=== PATIENT | female | born 1940 | race African-American/Black ===

== ENCOUNTER 2021-03-31 15:58 | Inpatient (IN) | payer OTHER ==
[2021-03-31] MEDS ORDERED: VANCOMYCIN 1 GM in D5W (PRE-DOCKED) 1,000 MG/250 ML IVPB ONE (17:30)
[2021-03-31] MEDS ORDERED: PIPERACILLIN/TAZOB 4.5 GM 4.5 GM in DEXTROSE 5%-WATER 100 ML IVPB ONE (17:35)
[2021-03-31] MEDS ORDERED: PIPERACILLIN/TAZOB 4.5 GM 4.5 GM/100 ML BAG IVPB ONE (17:48)
[2021-03-31] MEDS ORDERED: VANCOMYCIN 1 GRAM (PRE-DOCKED) 1,000 MG/250 ML BAG IVPB ONE ×2 (17:49→20:31)
[2021-03-31 18:10] LABS: BASO % 0.2 % (0-2.0); HEMOGLOBIN 9.7 GM/dL (10.7-15.3); LYMPH % 20.7 % (8-40); MCH 31.7 pg (25.7-33.7); MCHC 33.5 g/dl (32.0-36.0); MEAN CELL VOLUME 94.5 fl (80-96); MEAN PLT VOLUME 7.8 fl (7.5-11.1); MONO % 5.9 % (3.8-10.2); NEUT % 71.2 % (42.8-82.8); PLATELET COUNT 497 10^3/uL (134-434); RBC 3.07 M/mm3 (3.60-5.2); RDW 17.4 % (11.6-15.6); WHITE BLOOD COUNT 9.7 K/mm3 (4.0-10.0)
[2021-03-31 18:15] LABS: VENOUS BASE EXCESS 2.6 mmol/L (-2-2); VENOUS O2 SATURATION 73.5 % (70-80); VENOUS PCO2 42.8 mmHg (38-52); VENOUS PH 7.423 (7.310-7.410)
[2021-03-31 18:22] LABS: CHLORIDE 104 mmol/L (98-107); SODIUM 140 mmol/L (136-145)
[2021-03-31 18:26] LABS: ALBUMIN 2.5 g/dl (3.4-5.0); ANION GAP 9 MMOL/L (8-16); BLOOD UREA NITROGEN 32.3 mg/dL (7-18); CALCIUM 9.5 mg/dL (8.5-10.1); CO2 26 mmol/L (21-32)
[2021-03-31 18:27] LABS: GLUCOSE,RANDOM 118 mg/dL (74-106)
[2021-03-31 18:29] LABS: SGPT/ALT 17 U/L (13-61)
[2021-03-31 18:30] LABS: SGOT/AST 17 U/L (15-37)
[2021-03-31 18:32] LABS: ALK PHOS 149 U/L (45-117); BILIRUBIN,TOTAL 0.3 mg/dL (0.2-1); TOT PROT 7.3 g/dl (6.4-8.2)
[2021-04-01] MEDS: INSULIN SLIDING SCALE (NOVOLOG) 1 VIAL SQ SCH ×5 (00:49→21:14)
[2021-04-01] MEDS: GABAPENTIN 250 MG/5 ML ORAL SOLUTION, 470 ML BOTTLE GT SCH ×2 (07:06→17:16)
[2021-04-01] MEDS ORDERED: VANCOMYCIN HCL 1,500 MG in DEXTROSE 5%-WATER - 500 ML IVPB ONE (07:45)
[2021-04-01] MEDS: ALBUTEROL SO4 2.5/IPRATROPIUM 0.5 INH SOL 3 ML VIAL.NEB. NEB SCH ×4 (10:00→21:08)
[2021-04-01 10:50] LABS: HEMATOCRIT 29.6 % (32.4-45.2); HEMOGLOBIN 9.9 GM/dL (10.7-15.3); MCH 31.6 pg (25.7-33.7); MCHC 33.6 g/dl (32.0-36.0); MEAN CELL VOLUME 93.9 fl (80-96); MEAN PLT VOLUME 7.5 fl (7.5-11.1); PLATELET COUNT 510 10^3/uL (134-434); RBC 3.15 M/mm3 (3.60-5.2); WHITE BLOOD COUNT 8.6 K/mm3 (4.0-10.0)
[2021-04-01 10:55] LABS: INR 1.17 (0.83-1.09); PROTHROMBIN TIME (PATIENT) 14.4 SEC (9.7-13.0)
[2021-04-01 11:13] LABS: ALBUMIN 2.6 g/dl (3.4-5.0); BLOOD UREA NITROGEN 30.2 mg/dL (7-18)
[2021-04-01 11:14] LABS: CALCIUM 9.7 mg/dL (8.5-10.1); MAGNESIUM 2.3 mg/dL (1.8-2.4)
[2021-04-01] MEDS ORDERED: PT OWN MED DRAWER 7, Y5N ONE (11:14)
[2021-04-01] MEDS ORDERED: PIPERACILLIN/TAZOBACTAM 4.5 GM VIAL IVPB ONE ×3 (11:14→20:25)
[2021-04-01] MEDS ORDERED: DEXTROSE 5%-WATER 100 ML IVPB ONE ×3 (11:14→20:25)
[2021-04-01 11:17] LABS: CREATININE 1.1 mg/dL (0.55-1.3)
[2021-04-01 11:18] LABS: BILIRUBIN,TOTAL 0.4 mg/dL (0.2-1); TOT PROT 7.5 g/dl (6.4-8.2)
[2021-04-01] MEDS: PIPERACILLIN/TAZOB 4.5 GM 4.5 GM in DEXTROSE 5%-WATER 100 ML IVPB SCH ×4 (11:18→20:59)
[2021-04-01] MEDS: ASPIRIN 81 MG CHEWABLE TABLETS GT SCH (11:19)
[2021-04-01] MEDS: METOPROLOL TARTRATE 50 MG TABLET (FP) GT SCH ×2 (11:54→21:08)
[2021-04-01] MEDS: FUROSEMIDE 40 MG/5 ML UNIT-DOSE CUP GT SCH (12:50)
[2021-04-01] MEDS: FAMOTIDINE 40 MG/5 ML ORAL SUSPENSION PEG SCH (12:51)
[2021-04-01] MEDS ORDERED: PNEUMOC 13-VAL CONJ-DIP CRM/PF 0.5 ML DISP.SYRIN IM ONE (18:34)
[2021-04-01] MEDS: ATORVASTATIN CA 10 MG TABLET (FP) GT SCH (21:08)
[2021-04-01 22:40] VITALS: BMI 28.4
[2021-04-02] MEDS ORDERED: PIPERACILLIN/TAZOBACTAM 4.5 GM VIAL IVPB ONE ×5 (01:50→21:22)
[2021-04-02] MEDS ORDERED: DEXTROSE 5%-WATER 100 ML IVPB ONE ×4 (01:50→21:12)
[2021-04-02] MEDS ORDERED: VANCOMYCIN 1 GM in D5W (PRE-DOCKED) 1,000 MG/250 ML IVPB ONE (01:54)
[2021-04-02] MEDS: PIPERACILLIN/TAZOB 4.5 GM 4.5 GM in DEXTROSE 5%-WATER 100 ML IVPB SCH ×4 (02:10→22:25)
[2021-04-02] MEDS: GABAPENTIN 250 MG/5 ML ORAL SOLUTION, 470 ML BOTTLE GT SCH ×2 (05:28→17:41)
[2021-04-02] MEDS: INSULIN SLIDING SCALE (NOVOLOG) 1 VIAL SQ SCH ×4 (06:12→21:16)
[2021-04-02] MEDS ORDERED: VANCOMYCIN 1 GRAM (PRE-DOCKED) 1,000 MG/250 ML BAG IVPB SCH (09:00)
[2021-04-02] MEDS: ALBUTEROL SO4 2.5/IPRATROPIUM 0.5 INH SOL 3 ML VIAL.NEB. NEB SCH ×4 (09:57→21:05)
[2021-04-02 10:26] LABS: BASO % 0.3 % (0-2.0); HEMATOCRIT 28.1 % (32.4-45.2); HEMOGLOBIN 9.5 GM/dL (10.7-15.3); LYMPH % 24.2 % (8-40); MCH 31.1 pg (25.7-33.7); MCHC 33.8 g/dl (32.0-36.0); MEAN CELL VOLUME 91.9 fl (80-96); MEAN PLT VOLUME 6.9 fl (7.5-11.1); MONO % 6.9 % (3.8-10.2); NEUT % 66.6 % (42.8-82.8); PLATELET COUNT 480 10^3/uL (134-434); RBC 3.06 M/mm3 (3.60-5.2); RDW 17.5 % (11.6-15.6); WHITE BLOOD COUNT 9.4 K/mm3 (4.0-10.0)
[2021-04-02 10:44] LABS: BLOOD UREA NITROGEN 28.8 mg/dL (7-18); CALCIUM 9.7 mg/dL (8.5-10.1)
[2021-04-02 10:45] LABS: ALBUMIN 2.5 g/dl (3.4-5.0)
[2021-04-02 10:48] LABS: CREATININE 1.3 mg/dL (0.55-1.3)
[2021-04-02 10:50] LABS: BILIRUBIN,TOTAL 0.7 mg/dL (0.2-1); TOT PROT 7.3 g/dl (6.4-8.2)
[2021-04-02] MEDS: ASPIRIN 81 MG CHEWABLE TABLETS GT SCH (12:07)
[2021-04-02] MEDS: METOPROLOL TARTRATE 50 MG TABLET (FP) GT SCH ×2 (12:07→21:15)
[2021-04-02] MEDS: FUROSEMIDE 40 MG/5 ML UNIT-DOSE CUP GT SCH (12:07)
[2021-04-02] MEDS: FAMOTIDINE 40 MG/5 ML ORAL SUSPENSION PEG SCH (12:08)
[2021-04-02] MEDS ORDERED: PT OWN MED DRAWER 7, Y5N ONE (17:02)
[2021-04-02] MEDS: ATORVASTATIN CA 10 MG TABLET (FP) GT SCH (21:15)
[2021-04-02] MEDS ORDERED: VANCOMYCIN/WATER BAGS 1,250 MG/250 ML BAG IVPB SCH (22:00)
[2021-04-03] MEDS ORDERED: PIPERACILLIN/TAZOBACTAM 4.5 GM VIAL IVPB ONE ×4 (02:01→21:03)
[2021-04-03] MEDS ORDERED: DEXTROSE 5%-WATER 100 ML IVPB ONE ×4 (02:02→21:03)
[2021-04-03] MEDS: PIPERACILLIN/TAZOB 4.5 GM 4.5 GM in DEXTROSE 5%-WATER 100 ML IVPB SCH ×4 (03:01→21:05)
[2021-04-03] MEDS ORDERED: PT OWN MED DRAWER 7, Y5N ONE ×3 (04:13→09:00)
[2021-04-03] MEDS: INSULIN SLIDING SCALE (NOVOLOG) 1 VIAL SQ SCH ×4 (06:14→21:07)
[2021-04-03] MEDS: GABAPENTIN 250 MG/5 ML ORAL SOLUTION, 470 ML BOTTLE GT SCH ×2 (06:22→17:20)
[2021-04-03] MEDS: METOPROLOL TARTRATE 50 MG TABLET (FP) GT SCH ×2 (09:48→21:05)
[2021-04-03] MEDS: FUROSEMIDE 40 MG/5 ML UNIT-DOSE CUP GT SCH (09:49)
[2021-04-03] MEDS: FAMOTIDINE 40 MG/5 ML ORAL SUSPENSION PEG SCH (09:49)
[2021-04-03] MEDS: ASPIRIN 81 MG CHEWABLE TABLETS GT SCH (09:50)
[2021-04-03] MEDS: ALBUTEROL SO4 2.5/IPRATROPIUM 0.5 INH SOL 3 ML VIAL.NEB. NEB SCH ×4 (10:41→22:17)
[2021-04-03] MEDS ORDERED: INSULIN SLIDING SCALE (NOVOLOG) 1 VIAL SQ ONE (11:38)
[2021-04-03] MEDS: ATORVASTATIN CA 10 MG TABLET (FP) GT SCH (21:05)
[2021-04-03] MEDS: POLYETHYLENE GLYCOL (HEALTHYLAX) 3350 17 GM PACKET GT SCH (21:05)
[2021-04-04] MEDS ORDERED: DEXTROSE 5%-WATER 100 ML IVPB ONE ×4 (02:06→20:37)
[2021-04-04] MEDS ORDERED: PIPERACILLIN/TAZOBACTAM 4.5 GM VIAL IVPB ONE ×4 (02:06→20:37)
[2021-04-04] MEDS: PIPERACILLIN/TAZOB 4.5 GM 4.5 GM in DEXTROSE 5%-WATER 100 ML IVPB SCH ×4 (02:15→20:41)
[2021-04-04] MEDS: ACETAMINOPHEN 325 MG TABLET (FP) PO PRN (04:36)
[2021-04-04] MEDS: INSULIN SLIDING SCALE (NOVOLOG) 1 VIAL SQ SCH ×4 (06:17→21:05)
[2021-04-04] MEDS: GABAPENTIN 250 MG/5 ML ORAL SOLUTION, 470 ML BOTTLE GT SCH ×2 (06:38→18:13)
[2021-04-04] MEDS: ALBUTEROL SO4 2.5/IPRATROPIUM 0.5 INH SOL 3 ML VIAL.NEB. NEB SCH ×4 (07:50→20:10)
[2021-04-04] MEDS ORDERED: PT OWN MED DRAWER 7, Y5N ONE (09:43)
[2021-04-04] MEDS: METOPROLOL TARTRATE 50 MG TABLET (FP) GT SCH ×2 (09:45→21:04)
[2021-04-04] MEDS: ASPIRIN 81 MG CHEWABLE TABLETS GT SCH (09:45)
[2021-04-04] MEDS: POLYETHYLENE GLYCOL (HEALTHYLAX) 3350 17 GM PACKET GT SCH ×2 (09:45→21:03)
[2021-04-04] MEDS: FAMOTIDINE 40 MG/5 ML ORAL SUSPENSION PEG SCH (09:46)
[2021-04-04] MEDS: FUROSEMIDE 40 MG/5 ML UNIT-DOSE CUP GT SCH (09:46)
[2021-04-04 11:24] LABS: BASO % 0.2 % (0-2.0); EOS % 1.6 % (0-4.5); HEMATOCRIT 27.3 % (32.4-45.2); HEMOGLOBIN 9.2 GM/dL (10.7-15.3); LYMPH % 21.5 % (8-40); MCH 31.3 pg (25.7-33.7); MCHC 33.6 g/dl (32.0-36.0); MEAN CELL VOLUME 93.1 fl (80-96); MEAN PLT VOLUME 7.2 fl (7.5-11.1); MONO % 7.4 % (3.8-10.2); NEUT % 69.3 % (42.8-82.8); PLATELET COUNT 457 10^3/uL (134-434); RBC 2.94 M/mm3 (3.60-5.2); RDW 17.4 % (11.6-15.6); WHITE BLOOD COUNT 10.8 K/mm3 (4.0-10.0)
[2021-04-04 11:50] LABS: BLOOD UREA NITROGEN 35.7 mg/dL (7-18)
[2021-04-04 11:51] LABS: ALBUMIN 2.2 g/dl (3.4-5.0); CALCIUM 9.1 mg/dL (8.5-10.1)
[2021-04-04 11:54] LABS: CREATININE 1.5 mg/dL (0.55-1.3)
[2021-04-04 11:58] LABS: BILIRUBIN,TOTAL 0.5 mg/dL (0.2-1)
[2021-04-04] MEDS: ATORVASTATIN CA 10 MG TABLET (FP) GT SCH (21:04)
[2021-04-05] MEDS ORDERED: DEXTROSE 5%-WATER 100 ML IVPB ONE ×4 (01:57→21:22)
[2021-04-05] MEDS ORDERED: PIPERACILLIN/TAZOBACTAM 4.5 GM VIAL IVPB ONE ×4 (01:57→21:22)
[2021-04-05] MEDS: PIPERACILLIN/TAZOB 4.5 GM 4.5 GM in DEXTROSE 5%-WATER 100 ML IVPB SCH ×4 (02:01→21:28)
[2021-04-05] MEDS: ACETAMINOPHEN 325 MG TABLET (FP) PO PRN (05:05)
[2021-04-05] MEDS: GABAPENTIN 250 MG/5 ML ORAL SOLUTION, 470 ML BOTTLE GT SCH ×2 (05:23→17:29)
[2021-04-05] MEDS: INSULIN SLIDING SCALE (NOVOLOG) 1 VIAL SQ SCH ×4 (07:31→21:33)
[2021-04-05] MEDS: ALBUTEROL SO4 2.5/IPRATROPIUM 0.5 INH SOL 3 ML VIAL.NEB. NEB SCH ×4 (08:15→15:10)
[2021-04-05 08:59] LABS: BASO % 0.3 % (0-2.0); EOS % 2.7 % (0-4.5); HEMATOCRIT 27.1 % (32.4-45.2); HEMOGLOBIN 9.1 GM/dL (10.7-15.3); LYMPH % 21.2 % (8-40); MCH 31.3 pg (25.7-33.7); MCHC 33.7 g/dl (32.0-36.0); MEAN CELL VOLUME 92.9 fl (80-96); MEAN PLT VOLUME 7.3 fl (7.5-11.1); MONO % 6.7 % (3.8-10.2); NEUT % 69.1 % (42.8-82.8); PLATELET COUNT 472 10^3/uL (134-434); RBC 2.91 M/mm3 (3.60-5.2); RDW 17.6 % (11.6-15.6)
[2021-04-05 09:21] LABS: BLOOD UREA NITROGEN 41.2 mg/dL (7-18); MAGNESIUM 3.1 mg/dL (1.8-2.4)
[2021-04-05 09:24] LABS: CALCIUM 9.8 mg/dL (8.5-10.1); CREATININE 1.3 mg/dL (0.55-1.3)
[2021-04-05] MEDS: POLYETHYLENE GLYCOL (HEALTHYLAX) 3350 17 GM PACKET GT SCH ×2 (11:36→21:23)
[2021-04-05] MEDS ORDERED: PT OWN MED DRAWER 7, Y5N ONE (11:40)
[2021-04-05] MEDS: ASPIRIN 81 MG CHEWABLE TABLETS GT SCH (11:44)
[2021-04-05] MEDS: FUROSEMIDE 40 MG/5 ML UNIT-DOSE CUP GT SCH (11:44)
[2021-04-05] MEDS: FAMOTIDINE 40 MG/5 ML ORAL SUSPENSION PEG SCH (11:44)
[2021-04-05] MEDS: METOPROLOL TARTRATE 50 MG TABLET (FP) GT SCH ×2 (11:44→21:29)
[2021-04-05] MEDS: COLLAGENASE CLOSTRIDIUM HIST. 30 GRAMS TUBE TP SCH ×2 (14:00→21:28)
[2021-04-05] MEDS ORDERED: POTASSIUM CHLORIDE ORAL LIQUID 20 MEQ/15 ML PO ONE (17:00)
[2021-04-05] MEDS: ATORVASTATIN CA 10 MG TABLET (FP) GT SCH (21:29)
[2021-04-06] MEDS ORDERED: DEXTROSE 5%-WATER 100 ML IVPB ONE ×2 (03:02→09:40)
[2021-04-06] MEDS ORDERED: PIPERACILLIN/TAZOBACTAM 4.5 GM VIAL IVPB ONE ×2 (03:02→09:40)
[2021-04-06] MEDS: PIPERACILLIN/TAZOB 4.5 GM 4.5 GM in DEXTROSE 5%-WATER 100 ML IVPB SCH ×2 (03:12→09:53)
[2021-04-06] MEDS ORDERED: PT OWN MED DRAWER 7, Y5N ONE ×3 (06:06→09:40)
[2021-04-06] MEDS: GABAPENTIN 250 MG/5 ML ORAL SOLUTION, 470 ML BOTTLE GT SCH ×2 (06:13→18:21)
[2021-04-06] MEDS: INSULIN SLIDING SCALE (NOVOLOG) 1 VIAL SQ SCH ×4 (06:13→22:21)
[2021-04-06] MEDS: ALBUTEROL SO4 2.5/IPRATROPIUM 0.5 INH SOL 3 ML VIAL.NEB. NEB SCH ×4 (08:00→20:05)
[2021-04-06 09:14] LABS: BASO % 0.3 % (0-2.0); EOS % 2.4 % (0-4.5); HEMATOCRIT 27.7 % (32.4-45.2); HEMOGLOBIN 9.1 GM/dL (10.7-15.3); LYMPH % 19.4 % (8-40); MCH 31.1 pg (25.7-33.7); MCHC 32.9 g/dl (32.0-36.0); MEAN CELL VOLUME 94.5 fl (80-96); MEAN PLT VOLUME 7.3 fl (7.5-11.1); MONO % 6.2 % (3.8-10.2); NEUT % 71.7 % (42.8-82.8); PLATELET COUNT 523 10^3/uL (134-434); RBC 2.93 M/mm3 (3.60-5.2); RDW 17.3 % (11.6-15.6); WHITE BLOOD COUNT 9.4 K/mm3 (4.0-10.0)
[2021-04-06] MEDS: FUROSEMIDE 40 MG/5 ML UNIT-DOSE CUP GT SCH (09:54)
[2021-04-06] MEDS: ASPIRIN 81 MG CHEWABLE TABLETS GT SCH (09:55)
[2021-04-06] MEDS: MULTIVIT-MINERALS ORAL LIQUID PO SCH (09:55)
[2021-04-06] MEDS: METOPROLOL TARTRATE 50 MG TABLET (FP) GT SCH ×2 (09:55→22:21)
[2021-04-06] MEDS: FAMOTIDINE 40 MG/5 ML ORAL SUSPENSION PEG SCH (09:56)
[2021-04-06] MEDS ORDERED: MULTIVIT INJ. ADULT COMBO WITH VIT K 1 COMBO 10 ML VIAL IV SCH (10:00)
[2021-04-06] MEDS: POLYETHYLENE GLYCOL (HEALTHYLAX) 3350 17 GM PACKET GT SCH ×2 (10:24→22:20)
[2021-04-06] MEDS ORDERED: POTASSIUM CHLORIDE ORAL LIQUID 20 MEQ/15 ML PO ONE (10:25)
[2021-04-06] MEDS: COLLAGENASE CLOSTRIDIUM HIST. 30 GRAMS TUBE TP SCH ×2 (13:00→22:21)
[2021-04-06] MEDS: ATORVASTATIN CA 10 MG TABLET (FP) GT SCH (22:21)
[2021-04-07] MEDS ORDERED: PT OWN MED DRAWER 7, Y5N ONE ×2 (06:15→09:29)
[2021-04-07] MEDS: INSULIN SLIDING SCALE (NOVOLOG) 1 VIAL SQ SCH ×4 (06:28→22:06)
[2021-04-07] MEDS: GABAPENTIN 250 MG/5 ML ORAL SOLUTION, 470 ML BOTTLE GT SCH ×2 (06:28→17:22)
[2021-04-07] MEDS: ALBUTEROL SO4 2.5/IPRATROPIUM 0.5 INH SOL 3 ML VIAL.NEB. NEB SCH ×4 (07:50→20:29)
[2021-04-07 08:43] LABS: HEMATOCRIT 27.3 % (32.4-45.2); MCH 31.2 pg (25.7-33.7); MEAN CELL VOLUME 94.6 fl (80-96); MEAN PLT VOLUME 7.2 fl (7.5-11.1); PLATELET COUNT 475 10^3/uL (134-434); RBC 2.88 M/mm3 (3.60-5.2); RDW 17.7 % (11.6-15.6)
[2021-04-07 08:56] LABS: CALCIUM 9.6 mg/dL (8.5-10.1)
[2021-04-07 08:57] LABS: BLOOD UREA NITROGEN 47.4 mg/dL (7-18)
[2021-04-07 09:01] LABS: CREATININE 1.2 mg/dL (0.55-1.3)
[2021-04-07] MEDS: ASPIRIN 81 MG CHEWABLE TABLETS GT SCH (09:59)
[2021-04-07] MEDS: METOPROLOL TARTRATE 50 MG TABLET (FP) GT SCH ×2 (09:59→22:05)
[2021-04-07] MEDS: FAMOTIDINE 40 MG/5 ML ORAL SUSPENSION PEG SCH (10:00)
[2021-04-07] MEDS: FUROSEMIDE 40 MG/5 ML UNIT-DOSE CUP GT SCH (10:01)
[2021-04-07] MEDS: MULTIVIT-MINERALS ORAL LIQUID PO SCH (10:02)
[2021-04-07] MEDS: POLYETHYLENE GLYCOL (HEALTHYLAX) 3350 17 GM PACKET GT SCH ×2 (12:11→22:06)
[2021-04-07] MEDS: COLLAGENASE CLOSTRIDIUM HIST. 30 GRAMS TUBE TP SCH ×2 (12:11→22:05)
[2021-04-07] MEDS: ATORVASTATIN CA 10 MG TABLET (FP) GT SCH (22:05)
[2021-04-07] MEDS: HEPARIN NA (PORCINE) 5,000 UNITS/ML 1ML VIAL SQ SCH (22:05)
[2021-04-08] MEDS ORDERED: PT OWN MED DRAWER 7, Y5N ONE (06:25)
[2021-04-08] MEDS: INSULIN SLIDING SCALE (NOVOLOG) 1 VIAL SQ SCH ×5 (06:48→21:52)
[2021-04-08] MEDS: GABAPENTIN 250 MG/5 ML ORAL SOLUTION, 470 ML BOTTLE GT SCH ×2 (06:49→18:19)
[2021-04-08] MEDS: ALBUTEROL SO4 2.5/IPRATROPIUM 0.5 INH SOL 3 ML VIAL.NEB. NEB SCH ×4 (09:33→20:20)
[2021-04-08] MEDS: ASPIRIN 81 MG CHEWABLE TABLETS GT SCH (11:15)
[2021-04-08] MEDS: METOPROLOL TARTRATE 50 MG TABLET (FP) GT SCH ×2 (11:15→21:44)
[2021-04-08] MEDS: FUROSEMIDE 40 MG/5 ML UNIT-DOSE CUP GT SCH (11:16)
[2021-04-08] MEDS: HEPARIN NA (PORCINE) 5,000 UNITS/ML 1ML VIAL SQ SCH ×2 (11:16→21:44)
[2021-04-08] MEDS: POLYETHYLENE GLYCOL (HEALTHYLAX) 3350 17 GM PACKET GT SCH ×2 (11:16→21:44)
[2021-04-08] MEDS: MULTIVIT-MINERALS ORAL LIQUID PO SCH (11:16)
[2021-04-08] MEDS: COLLAGENASE CLOSTRIDIUM HIST. 30 GRAMS TUBE TP SCH (11:17)
[2021-04-08] MEDS: FAMOTIDINE 40 MG/5 ML ORAL SUSPENSION PEG SCH (11:17)
[2021-04-08 15:37] LABS: BASO % 0.3 % (0-2.0); EOS % 1.3 % (0-4.5); HEMATOCRIT 29.4 % (32.4-45.2); HEMOGLOBIN 9.6 GM/dL (10.7-15.3); LYMPH % 22.9 % (8-40); MCH 31.2 pg (25.7-33.7); MCHC 32.7 g/dl (32.0-36.0); MEAN CELL VOLUME 95.7 fl (80-96); MEAN PLT VOLUME 7.3 fl (7.5-11.1); MONO % 6.3 % (3.8-10.2); NEUT % 69.2 % (42.8-82.8); PLATELET COUNT 515 10^3/uL (134-434); RBC 3.07 M/mm3 (3.60-5.2); RDW 18.2 % (11.6-15.6); WHITE BLOOD COUNT 9.8 K/mm3 (4.0-10.0)
[2021-04-08 15:59] LABS: CALCIUM 9.9 mg/dL (8.5-10.1)
[2021-04-08 16:00] LABS: ALBUMIN 2.6 g/dl (3.4-5.0); BLOOD UREA NITROGEN 52.2 mg/dL (7-18); MAGNESIUM 2.5 mg/dL (1.8-2.4)
[2021-04-08 16:03] LABS: CREATININE 1.3 mg/dL (0.55-1.3)
[2021-04-08 16:04] LABS: BILIRUBIN,TOTAL 0.5 mg/dL (0.2-1)
[2021-04-08 16:05] LABS: TOT PROT 7.6 g/dl (6.4-8.2)
[2021-04-08] MEDS: ATORVASTATIN CA 10 MG TABLET (FP) GT SCH (21:44)
[2021-04-09] MEDS: GABAPENTIN 250 MG/5 ML ORAL SOLUTION, 470 ML BOTTLE GT SCH ×2 (05:39→18:32)
[2021-04-09] MEDS: COLLAGENASE CLOSTRIDIUM HIST. 30 GRAMS TUBE TP SCH ×2 (05:40→10:49)
[2021-04-09] MEDS: INSULIN SLIDING SCALE (NOVOLOG) 1 VIAL SQ SCH ×4 (06:05→21:51)
[2021-04-09] MEDS: ALBUTEROL SO4 2.5/IPRATROPIUM 0.5 INH SOL 3 ML VIAL.NEB. NEB SCH ×4 (07:40→20:32)
[2021-04-09] MEDS: HEPARIN NA (PORCINE) 5,000 UNITS/ML 1ML VIAL SQ SCH ×2 (10:47→21:54)
[2021-04-09] MEDS: ASPIRIN 81 MG CHEWABLE TABLETS GT SCH (10:47)
[2021-04-09] MEDS: METOPROLOL TARTRATE 50 MG TABLET (FP) GT SCH ×2 (10:47→21:54)
[2021-04-09] MEDS: MULTIVIT-MINERALS ORAL LIQUID PO SCH (10:48)
[2021-04-09] MEDS: POLYETHYLENE GLYCOL (HEALTHYLAX) 3350 17 GM PACKET GT SCH ×2 (10:48→21:30)
[2021-04-09] MEDS: FUROSEMIDE 40 MG/5 ML UNIT-DOSE CUP GT SCH (10:48)
[2021-04-09] MEDS: FAMOTIDINE 40 MG/5 ML ORAL SUSPENSION PEG SCH (10:49)
[2021-04-09 13:58] LABS: BASO % 0.3 % (0-2.0); EOS % 3.8 % (0-4.5); HEMATOCRIT 28.6 % (32.4-45.2); HEMOGLOBIN 9.2 GM/dL (10.7-15.3); LYMPH % 23.6 % (8-40); MCH 30.6 pg (25.7-33.7); MCHC 32.1 g/dl (32.0-36.0); MEAN CELL VOLUME 95.4 fl (80-96); MEAN PLT VOLUME 7.4 fl (7.5-11.1); MONO % 6.2 % (3.8-10.2); NEUT % 66.1 % (42.8-82.8); PLATELET COUNT 466 10^3/uL (134-434); RDW 18.1 % (11.6-15.6); WHITE BLOOD COUNT 9.7 K/mm3 (4.0-10.0)
[2021-04-09 14:16] LABS: ALBUMIN 2.3 g/dl (3.4-5.0); CALCIUM 9.6 mg/dL (8.5-10.1)
[2021-04-09 14:17] LABS: BLOOD UREA NITROGEN 54.7 mg/dL (7-18); MAGNESIUM 2.5 mg/dL (1.8-2.4)
[2021-04-09 14:20] LABS: CREATININE 1.1 mg/dL (0.55-1.3)
[2021-04-09 14:21] LABS: BILIRUBIN,TOTAL 0.2 mg/dL (0.2-1); TOT PROT 7.1 g/dl (6.4-8.2)
[2021-04-09] MEDS: ATORVASTATIN CA 10 MG TABLET (FP) GT SCH (21:54)
[2021-04-10] MEDS: COLLAGENASE CLOSTRIDIUM HIST. 30 GRAMS TUBE TP SCH ×3 (02:46→21:08)
[2021-04-10] MEDS: GABAPENTIN 250 MG/5 ML ORAL SOLUTION, 470 ML BOTTLE GT SCH ×2 (05:33→17:51)
[2021-04-10] MEDS: INSULIN SLIDING SCALE (NOVOLOG) 1 VIAL SQ SCH ×4 (06:02→21:06)
[2021-04-10] MEDS: ALBUTEROL SO4 2.5/IPRATROPIUM 0.5 INH SOL 3 ML VIAL.NEB. NEB SCH ×3 (08:40→20:22)
[2021-04-10] MEDS ORDERED: PT OWN MED DRAWER 7, Y5N ONE ×2 (08:58→18:02)
[2021-04-10] MEDS: FAMOTIDINE 40 MG/5 ML ORAL SUSPENSION PEG SCH (09:32)
[2021-04-10] MEDS: MULTIVIT-MINERALS ORAL LIQUID PO SCH (09:33)
[2021-04-10] MEDS: HEPARIN NA (PORCINE) 5,000 UNITS/ML 1ML VIAL SQ SCH ×2 (09:33→21:06)
[2021-04-10] MEDS: POLYETHYLENE GLYCOL (HEALTHYLAX) 3350 17 GM PACKET GT SCH ×3 (09:33→21:31)
[2021-04-10] MEDS: FUROSEMIDE 40 MG/5 ML UNIT-DOSE CUP GT SCH (09:33)
[2021-04-10] MEDS: ASPIRIN 81 MG CHEWABLE TABLETS GT SCH (09:35)
[2021-04-10] MEDS: METOPROLOL TARTRATE 50 MG TABLET (FP) GT SCH ×2 (09:36→21:06)
[2021-04-10 10:53] LABS: BASO % 0.5 % (0-2.0); EOS % 2.7 % (0-4.5); HEMATOCRIT 30.7 % (32.4-45.2); HEMOGLOBIN 9.9 GM/dL (10.7-15.3); LYMPH % 27.5 % (8-40); MCH 30.9 pg (25.7-33.7); MCHC 32.3 g/dl (32.0-36.0); MEAN CELL VOLUME 95.6 fl (80-96); MEAN PLT VOLUME 7.7 fl (7.5-11.1); MONO % 5.8 % (3.8-10.2); NEUT % 63.5 % (42.8-82.8); PLATELET COUNT 516 10^3/uL (134-434); RBC 3.21 M/mm3 (3.60-5.2); RDW 18.6 % (11.6-15.6); WHITE BLOOD COUNT 11.5 K/mm3 (4.0-10.0)
[2021-04-10 11:31] LABS: ALBUMIN 2.5 g/dl (3.4-5.0); BLOOD UREA NITROGEN 56.4 mg/dL (7-18); CALCIUM 9.9 mg/dL (8.5-10.1); MAGNESIUM 2.6 mg/dL (1.8-2.4)
[2021-04-10 11:34] LABS: CREATININE 1.2 mg/dL (0.55-1.3)
[2021-04-10 11:35] LABS: BILIRUBIN,TOTAL 0.4 mg/dL (0.2-1)
[2021-04-10 11:39] LABS: TOT PROT 7.6 g/dl (6.4-8.2)
[2021-04-10] MEDS ORDERED: DEXTROSE 5%-WATER - 1,000 ML IV SCH (11:45)
[2021-04-10] MEDS: ATORVASTATIN CA 10 MG TABLET (FP) GT SCH (21:05)
[2021-04-11] MEDS: GABAPENTIN 250 MG/5 ML ORAL SOLUTION, 470 ML BOTTLE GT SCH ×2 (05:16→17:50)
[2021-04-11] MEDS: INSULIN SLIDING SCALE (NOVOLOG) 1 VIAL SQ SCH ×4 (06:08→21:14)
[2021-04-11] MEDS: AMINO ACIDS/PROTEIN HYDROLYS 30 ML LIQUID.PKT GT SCH (07:59)
[2021-04-11] MEDS: ALBUTEROL SO4 2.5/IPRATROPIUM 0.5 INH SOL 3 ML VIAL.NEB. NEB SCH ×4 (08:35→20:33)
[2021-04-11] MEDS: ASPIRIN 81 MG CHEWABLE TABLETS GT SCH (09:30)
[2021-04-11] MEDS: METOPROLOL TARTRATE 50 MG TABLET (FP) GT SCH ×2 (09:30→21:14)
[2021-04-11] MEDS: FAMOTIDINE 40 MG/5 ML ORAL SUSPENSION PEG SCH (09:34)
[2021-04-11] MEDS: FUROSEMIDE 40 MG/5 ML UNIT-DOSE CUP GT SCH (09:36)
[2021-04-11] MEDS: MULTIVIT-MINERALS ORAL LIQUID PO SCH (09:37)
[2021-04-11] MEDS: HEPARIN NA (PORCINE) 5,000 UNITS/ML 1ML VIAL SQ SCH ×2 (09:39→21:14)
[2021-04-11] MEDS: POLYETHYLENE GLYCOL (HEALTHYLAX) 3350 17 GM PACKET GT SCH ×2 (09:40→21:14)
[2021-04-11] MEDS: COLLAGENASE CLOSTRIDIUM HIST. 30 GRAMS TUBE TP SCH ×2 (09:41→21:15)
[2021-04-11 09:59] LABS: BASO % 0.5 % (0-2.0); EOS % 1.5 % (0-4.5); HEMATOCRIT 29.8 % (32.4-45.2); HEMOGLOBIN 9.8 GM/dL (10.7-15.3); LYMPH % 17.2 % (8-40); MCH 31.5 pg (25.7-33.7); MEAN CELL VOLUME 95.4 fl (80-96); MEAN PLT VOLUME 7.7 fl (7.5-11.1); MONO % 4.6 % (3.8-10.2); NEUT % 76.2 % (42.8-82.8); PLATELET COUNT 445 10^3/uL (134-434); RBC 3.12 M/mm3 (3.60-5.2); RDW 18.3 % (11.6-15.6); WHITE BLOOD COUNT 10.1 K/mm3 (4.0-10.0)
[2021-04-11 10:25] LABS: BLOOD UREA NITROGEN 46.8 mg/dL (7-18)
[2021-04-11 10:28] LABS: CALCIUM 9.3 mg/dL (8.5-10.1); CREATININE 1.1 mg/dL (0.55-1.3); PHOSPHOROUS 3.1 mg/dL (2.5-4.9)
[2021-04-11] MEDS: ATORVASTATIN CA 10 MG TABLET (FP) GT SCH (21:14)
[2021-04-12] MEDS ORDERED: PT OWN MED DRAWER 7, Y5N ONE (05:30)
[2021-04-12] MEDS: GABAPENTIN 250 MG/5 ML ORAL SOLUTION, 470 ML BOTTLE GT SCH ×2 (05:37→18:39)
[2021-04-12] MEDS: INSULIN SLIDING SCALE (NOVOLOG) 1 VIAL SQ SCH ×3 (06:13→18:38)
[2021-04-12] MEDS: ALBUTEROL SO4 2.5/IPRATROPIUM 0.5 INH SOL 3 ML VIAL.NEB. NEB SCH ×4 (08:10→20:11)
[2021-04-12] MEDS: AMINO ACIDS/PROTEIN HYDROLYS 30 ML LIQUID.PKT GT SCH (10:54)
[2021-04-12] MEDS: METOPROLOL TARTRATE 50 MG TABLET (FP) GT SCH (10:55)
[2021-04-12] MEDS: HEPARIN NA (PORCINE) 5,000 UNITS/ML 1ML VIAL SQ SCH (10:55)
[2021-04-12] MEDS: ASPIRIN 81 MG CHEWABLE TABLETS GT SCH (10:55)
[2021-04-12] MEDS: FAMOTIDINE 40 MG/5 ML ORAL SUSPENSION PEG SCH (10:55)
[2021-04-12] MEDS: MULTIVIT-MINERALS ORAL LIQUID PO SCH (10:56)
[2021-04-12] MEDS: FUROSEMIDE 40 MG/5 ML UNIT-DOSE CUP GT SCH (10:56)
[2021-04-12] MEDS: POLYETHYLENE GLYCOL (HEALTHYLAX) 3350 17 GM PACKET GT SCH (10:56)
[2021-04-12] MEDS: COLLAGENASE CLOSTRIDIUM HIST. 30 GRAMS TUBE TP SCH (10:57)
[2021-04-13] MEDS: ATORVASTATIN CA 10 MG TABLET (FP) GT SCH ×2 (00:17→23:00)
[2021-04-13] MEDS: HEPARIN NA (PORCINE) 5,000 UNITS/ML 1ML VIAL SQ SCH ×3 (00:17→23:00)
[2021-04-13] MEDS: METOPROLOL TARTRATE 50 MG TABLET (FP) GT SCH ×3 (00:17→23:00)
[2021-04-13] MEDS: COLLAGENASE CLOSTRIDIUM HIST. 30 GRAMS TUBE TP SCH ×3 (00:18→23:04)
[2021-04-13] MEDS: POLYETHYLENE GLYCOL (HEALTHYLAX) 3350 17 GM PACKET GT SCH ×3 (00:18→23:00)
[2021-04-13] MEDS: INSULIN SLIDING SCALE (NOVOLOG) 1 VIAL SQ SCH ×5 (00:18→23:04)
[2021-04-13] MEDS ORDERED: PT OWN MED DRAWER 7, Y5N ONE ×3 (05:42→22:15)
[2021-04-13] MEDS: GABAPENTIN 250 MG/5 ML ORAL SOLUTION, 470 ML BOTTLE GT SCH ×2 (06:01→17:41)
[2021-04-13 08:04] LABS: BASO % 0.3 % (0-2.0); EOS % 1.5 % (0-4.5); HEMATOCRIT 27.5 % (32.4-45.2); HEMOGLOBIN 9.2 GM/dL (10.7-15.3); LYMPH % 16.8 % (8-40); MCH 31.5 pg (25.7-33.7); MCHC 33.4 g/dl (32.0-36.0); MEAN CELL VOLUME 94.4 fl (80-96); MEAN PLT VOLUME 8.2 fl (7.5-11.1); MONO % 5.8 % (3.8-10.2); NEUT % 75.6 % (42.8-82.8); PLATELET COUNT 397 10^3/uL (134-434); RBC 2.91 M/mm3 (3.60-5.2); RDW 18.2 % (11.6-15.6); WHITE BLOOD COUNT 9.4 K/mm3 (4.0-10.0)
[2021-04-13] MEDS: ALBUTEROL SO4 2.5/IPRATROPIUM 0.5 INH SOL 3 ML VIAL.NEB. NEB SCH ×5 (08:20→20:55)
[2021-04-13 08:50] LABS: BLOOD UREA NITROGEN 37.6 mg/dL (7-18)
[2021-04-13 08:53] LABS: CREATININE 1.1 mg/dL (0.55-1.3)
[2021-04-13 09:05] LABS: PHOSPHOROUS 3.7 mg/dL (2.5-4.9)
[2021-04-13] MEDS: AMINO ACIDS/PROTEIN HYDROLYS 30 ML LIQUID.PKT GT SCH (10:30)
[2021-04-13] MEDS: ASPIRIN 81 MG CHEWABLE TABLETS GT SCH (10:31)
[2021-04-13] MEDS: MULTIVIT-MINERALS ORAL LIQUID PO SCH (10:31)
[2021-04-13] MEDS: FAMOTIDINE 40 MG/5 ML ORAL SUSPENSION PEG SCH (10:32)
[2021-04-13] MEDS: FUROSEMIDE 40 MG/5 ML UNIT-DOSE CUP GT SCH (10:33)
[2021-04-13] MEDS: BANATROL PLUS POWDER PACKET GT SCH (23:00)
[2021-04-14] MEDS: GABAPENTIN 250 MG/5 ML ORAL SOLUTION, 470 ML BOTTLE GT SCH ×2 (05:17→18:38)
[2021-04-14] MEDS: BANATROL PLUS POWDER PACKET GT SCH ×3 (05:17→23:04)
[2021-04-14] MEDS: INSULIN SLIDING SCALE (NOVOLOG) 1 VIAL SQ SCH ×4 (06:43→23:06)
[2021-04-14] MEDS: ALBUTEROL SO4 2.5/IPRATROPIUM 0.5 INH SOL 3 ML VIAL.NEB. NEB SCH (07:30)
[2021-04-14 09:11] LABS: CALCIUM 9.1 mg/dL (8.5-10.1)
[2021-04-14 09:12] LABS: BLOOD UREA NITROGEN 37.1 mg/dL (7-18)
[2021-04-14] MEDS: METOPROLOL TARTRATE 50 MG TABLET (FP) GT SCH (10:45)
[2021-04-14] MEDS: ASPIRIN 81 MG CHEWABLE TABLETS GT SCH (10:45)
[2021-04-14] MEDS: AMINO ACIDS/PROTEIN HYDROLYS 30 ML LIQUID.PKT GT SCH (10:46)
[2021-04-14] MEDS: FUROSEMIDE 40 MG/5 ML UNIT-DOSE CUP GT SCH (10:46)
[2021-04-14] MEDS: HEPARIN NA (PORCINE) 5,000 UNITS/ML 1ML VIAL SQ SCH (10:46)
[2021-04-14] MEDS: MULTIVIT-MINERALS ORAL LIQUID PO SCH (10:46)
[2021-04-14] MEDS: POLYETHYLENE GLYCOL (HEALTHYLAX) 3350 17 GM PACKET GT SCH ×2 (10:47→23:03)
[2021-04-14] MEDS: FAMOTIDINE 40 MG/5 ML ORAL SUSPENSION PEG SCH (10:47)
[2021-04-14] MEDS: COLLAGENASE CLOSTRIDIUM HIST. 30 GRAMS TUBE TP SCH ×2 (10:48→23:06)
[2021-04-14] MEDS ORDERED: PT OWN MED DRAWER 7, Y5N ONE (23:01)
[2021-04-14] MEDS: ATORVASTATIN CA 10 MG TABLET (FP) GT SCH (23:04)
[2021-04-15] MEDS: METOPROLOL TARTRATE 50 MG TABLET (FP) GT SCH ×3 (00:35→22:17)
[2021-04-15] MEDS: GABAPENTIN 250 MG/5 ML ORAL SOLUTION, 470 ML BOTTLE GT SCH ×2 (05:23→19:25)
[2021-04-15] MEDS: BANATROL PLUS POWDER PACKET GT SCH ×3 (05:23→22:17)
[2021-04-15] MEDS: INSULIN SLIDING SCALE (NOVOLOG) 1 VIAL SQ SCH ×4 (06:02→22:18)
[2021-04-15] MEDS: AMINO ACIDS/PROTEIN HYDROLYS 30 ML LIQUID.PKT GT SCH (08:05)
[2021-04-15] MEDS: ASPIRIN 81 MG CHEWABLE TABLETS GT SCH (09:42)
[2021-04-15] MEDS: FUROSEMIDE 40 MG/5 ML UNIT-DOSE CUP GT SCH (09:43)
[2021-04-15] MEDS: FAMOTIDINE 40 MG/5 ML ORAL SUSPENSION PEG SCH (09:43)
[2021-04-15] MEDS: POLYETHYLENE GLYCOL (HEALTHYLAX) 3350 17 GM PACKET GT SCH ×2 (09:43→22:17)
[2021-04-15] MEDS: COLLAGENASE CLOSTRIDIUM HIST. 30 GRAMS TUBE TP SCH ×2 (09:43→22:18)
[2021-04-15] MEDS: ALBUTEROL SO4 2.5/IPRATROPIUM 0.5 INH SOL 3 ML VIAL.NEB. NEB SCH ×2 (15:57→20:05)
[2021-04-15] MEDS: MULTIVIT-MINERALS ORAL LIQUID PO SCH (19:20)
[2021-04-15] MEDS ORDERED: PT OWN MED DRAWER 7, Y5N ONE (21:09)
[2021-04-15] MEDS: ATORVASTATIN CA 10 MG TABLET (FP) GT SCH (22:17)
[2021-04-15] MEDS: HEPARIN NA (PORCINE) 5,000 UNITS/ML 1ML VIAL SQ SCH (22:17)
[2021-04-16] MEDS: GABAPENTIN 250 MG/5 ML ORAL SOLUTION, 470 ML BOTTLE GT SCH ×2 (05:21→17:17)
[2021-04-16] MEDS: BANATROL PLUS POWDER PACKET GT SCH ×3 (05:22→21:37)
[2021-04-16] MEDS: INSULIN SLIDING SCALE (NOVOLOG) 1 VIAL SQ SCH ×4 (06:21→21:37)
[2021-04-16] MEDS: ALBUTEROL SO4 2.5/IPRATROPIUM 0.5 INH SOL 3 ML VIAL.NEB. NEB SCH ×4 (07:34→20:13)
[2021-04-16] MEDS: AMINO ACIDS/PROTEIN HYDROLYS 30 ML LIQUID.PKT GT SCH (08:45)
[2021-04-16] MEDS: ASPIRIN 81 MG CHEWABLE TABLETS GT SCH (09:54)
[2021-04-16] MEDS: METOPROLOL TARTRATE 50 MG TABLET (FP) GT SCH ×2 (09:54→21:37)
[2021-04-16] MEDS: HEPARIN NA (PORCINE) 5,000 UNITS/ML 1ML VIAL SQ SCH ×2 (09:55→21:37)
[2021-04-16] MEDS: POLYETHYLENE GLYCOL (HEALTHYLAX) 3350 17 GM PACKET GT SCH ×2 (09:56→21:37)
[2021-04-16] MEDS: FUROSEMIDE 40 MG/5 ML UNIT-DOSE CUP GT SCH (09:56)
[2021-04-16] MEDS: FAMOTIDINE 40 MG/5 ML ORAL SUSPENSION PEG SCH (09:56)
[2021-04-16] MEDS: MULTIVIT-MINERALS ORAL LIQUID PO SCH (09:56)
[2021-04-16 10:16] LABS: MCH 31.3 pg (25.7-33.7); MCHC 33.4 g/dl (32.0-36.0); MEAN CELL VOLUME 93.6 fl (80-96); MEAN PLT VOLUME 7.6 fl (7.5-11.1); PLATELET COUNT 404 10^3/uL (134-434); RBC 2.88 M/mm3 (3.60-5.2); RDW 18.4 % (11.6-15.6); WHITE BLOOD COUNT 7.8 K/mm3 (4.0-10.0)
[2021-04-16] MEDS ORDERED: INSULIN SLIDING SCALE (NOVOLOG) 1 VIAL SQ ONE (10:53)
[2021-04-16 10:56] LABS: BLOOD UREA NITROGEN 42.7 mg/dL (7-18); CALCIUM 9.4 mg/dL (8.5-10.1)
[2021-04-16 10:57] LABS: ALBUMIN 2.3 g/dl (3.4-5.0)
[2021-04-16 11:00] LABS: TOT PROT 6.8 g/dl (6.4-8.2)
[2021-04-16 11:03] LABS: BILIRUBIN,TOTAL 0.3 mg/dL (0.2-1)
[2021-04-16] MEDS: COLLAGENASE CLOSTRIDIUM HIST. 30 GRAMS TUBE TP SCH ×2 (11:23→21:37)
[2021-04-16 12:04] LABS: ANISOCYTOSIS 0; HELMET CELLS 0; HOWELL-JOLLY BODIES 0; MACROCYTOSIS 0; OVALOCYTE 0; PLATELET ESTIMATE NORMAL; ROULEAU 0; SICKELED CELLS 0; TARGET CELLS 0; TEAR DROP CELLS 0; TOXIC GRANULATION 0
[2021-04-16] MEDS ORDERED: PT OWN MED DRAWER 7, Y5N ONE (20:56)
[2021-04-16] MEDS: ATORVASTATIN CA 10 MG TABLET (FP) GT SCH (21:37)
[2021-04-17] MEDS: GABAPENTIN 250 MG/5 ML ORAL SOLUTION, 470 ML BOTTLE GT SCH ×2 (05:20→18:08)
[2021-04-17] MEDS: BANATROL PLUS POWDER PACKET GT SCH ×3 (05:20→22:08)
[2021-04-17] MEDS: INSULIN SLIDING SCALE (NOVOLOG) 1 VIAL SQ SCH ×4 (06:05→22:19)
[2021-04-17] MEDS: ALBUTEROL SO4 2.5/IPRATROPIUM 0.5 INH SOL 3 ML VIAL.NEB. NEB SCH ×4 (07:55→20:43)
[2021-04-17] MEDS: AMINO ACIDS/PROTEIN HYDROLYS 30 ML LIQUID.PKT GT SCH (09:13)
[2021-04-17] MEDS: HEPARIN NA (PORCINE) 5,000 UNITS/ML 1ML VIAL SQ SCH ×2 (09:18→22:08)
[2021-04-17] MEDS: ASPIRIN 81 MG CHEWABLE TABLETS GT SCH (09:18)
[2021-04-17] MEDS: METOPROLOL TARTRATE 50 MG TABLET (FP) GT SCH ×2 (09:18→23:14)
[2021-04-17] MEDS: MULTIVIT-MINERALS ORAL LIQUID PO SCH (09:19)
[2021-04-17] MEDS: FAMOTIDINE 40 MG/5 ML ORAL SUSPENSION PEG SCH (09:19)
[2021-04-17] MEDS: FUROSEMIDE 40 MG/5 ML UNIT-DOSE CUP GT SCH (09:19)
[2021-04-17] MEDS: POLYETHYLENE GLYCOL (HEALTHYLAX) 3350 17 GM PACKET GT SCH ×2 (09:20→22:06)
[2021-04-17] MEDS: COLLAGENASE CLOSTRIDIUM HIST. 30 GRAMS TUBE TP SCH ×2 (09:20→22:08)
[2021-04-17] MEDS ORDERED: PT OWN MED DRAWER 7, Y5N ONE (21:50)
[2021-04-17] MEDS: ATORVASTATIN CA 10 MG TABLET (FP) GT SCH (22:08)
[2021-04-18] MEDS: GABAPENTIN 250 MG/5 ML ORAL SOLUTION, 470 ML BOTTLE GT SCH ×2 (06:00→17:21)
[2021-04-18] MEDS: BANATROL PLUS POWDER PACKET GT SCH ×3 (06:00→21:58)
[2021-04-18] MEDS: INSULIN SLIDING SCALE (NOVOLOG) 1 VIAL SQ SCH ×4 (06:14→21:58)
[2021-04-18] MEDS: ALBUTEROL SO4 2.5/IPRATROPIUM 0.5 INH SOL 3 ML VIAL.NEB. NEB SCH ×4 (08:20→19:35)
[2021-04-18] MEDS ORDERED: PT OWN MED DRAWER 7, Y5N ONE ×2 (08:45→21:49)
[2021-04-18] MEDS: AMINO ACIDS/PROTEIN HYDROLYS 30 ML LIQUID.PKT GT SCH (09:00)
[2021-04-18] MEDS: MULTIVIT-MINERALS ORAL LIQUID PO SCH (09:01)
[2021-04-18] MEDS: FUROSEMIDE 40 MG/5 ML UNIT-DOSE CUP GT SCH (09:02)
[2021-04-18] MEDS: FAMOTIDINE 40 MG/5 ML ORAL SUSPENSION PEG SCH (09:03)
[2021-04-18] MEDS: ASPIRIN 81 MG CHEWABLE TABLETS GT SCH (09:03)
[2021-04-18] MEDS: HEPARIN NA (PORCINE) 5,000 UNITS/ML 1ML VIAL SQ SCH ×2 (09:03→21:58)
[2021-04-18] MEDS: METOPROLOL TARTRATE 50 MG TABLET (FP) GT SCH ×2 (09:04→21:58)
[2021-04-18] MEDS: COLLAGENASE CLOSTRIDIUM HIST. 30 GRAMS TUBE TP SCH ×2 (09:41→21:59)
[2021-04-18] MEDS: POLYETHYLENE GLYCOL (HEALTHYLAX) 3350 17 GM PACKET GT SCH ×2 (09:42→21:58)
[2021-04-18] MEDS ORDERED: INSULIN SLIDING SCALE (NOVOLOG) 1 VIAL SQ ONE (11:01)
[2021-04-18] MEDS: ATORVASTATIN CA 10 MG TABLET (FP) GT SCH (21:58)
[2021-04-19] MEDS ORDERED: PT OWN MED DRAWER 7, Y5N ONE ×3 (06:21→18:05)
[2021-04-19] MEDS: BANATROL PLUS POWDER PACKET GT SCH ×3 (06:30→22:25)
[2021-04-19] MEDS: GABAPENTIN 250 MG/5 ML ORAL SOLUTION, 470 ML BOTTLE GT SCH ×2 (06:30→17:56)
[2021-04-19] MEDS: INSULIN SLIDING SCALE (NOVOLOG) 1 VIAL SQ SCH ×4 (06:31→22:25)
[2021-04-19] MEDS: AMINO ACIDS/PROTEIN HYDROLYS 30 ML LIQUID.PKT GT SCH (07:43)
[2021-04-19] MEDS: ALBUTEROL SO4 2.5/IPRATROPIUM 0.5 INH SOL 3 ML VIAL.NEB. NEB SCH ×4 (07:47→20:03)
[2021-04-19 08:35] LABS: BASO % 0.4 % (0-2.0); EOS % 2.7 % (0-4.5); HEMATOCRIT 29.9 % (32.4-45.2); HEMOGLOBIN 9.8 GM/dL (10.7-15.3); LYMPH % 31.7 % (8-40); MCH 31.1 pg (25.7-33.7); MCHC 32.6 g/dl (32.0-36.0); MEAN CELL VOLUME 95.3 fl (80-96); MEAN PLT VOLUME 7.6 fl (7.5-11.1); MONO % 9.1 % (3.8-10.2); NEUT % 56.1 % (42.8-82.8); PLATELET COUNT 386 10^3/uL (134-434); RBC 3.14 M/mm3 (3.60-5.2); RDW 18.7 % (11.6-15.6); WHITE BLOOD COUNT 7.9 K/mm3 (4.0-10.0)
[2021-04-19 09:02] LABS: CALCIUM 9.4 mg/dL (8.5-10.1)
[2021-04-19 09:03] LABS: BLOOD UREA NITROGEN 45.5 mg/dL (7-18)
[2021-04-19] MEDS: ASPIRIN 81 MG CHEWABLE TABLETS GT SCH (09:10)
[2021-04-19] MEDS: FAMOTIDINE 40 MG/5 ML ORAL SUSPENSION PEG SCH (09:10)
[2021-04-19] MEDS: METOPROLOL TARTRATE 50 MG TABLET (FP) GT SCH ×2 (09:10→22:25)
[2021-04-19] MEDS: HEPARIN NA (PORCINE) 5,000 UNITS/ML 1ML VIAL SQ SCH ×2 (09:11→22:25)
[2021-04-19] MEDS: POLYETHYLENE GLYCOL (HEALTHYLAX) 3350 17 GM PACKET GT SCH ×2 (09:12→22:26)
[2021-04-19] MEDS: MULTIVIT-MINERALS ORAL LIQUID PO SCH (09:12)
[2021-04-19] MEDS: FUROSEMIDE 40 MG/5 ML UNIT-DOSE CUP GT SCH (09:12)
[2021-04-19] MEDS: COLLAGENASE CLOSTRIDIUM HIST. 30 GRAMS TUBE TP SCH ×2 (09:13→22:26)
[2021-04-19] MEDS: ATORVASTATIN CA 10 MG TABLET (FP) GT SCH (22:25)
[2021-04-20] MEDS ORDERED: PT OWN MED DRAWER 7, Y5N ONE ×4 (05:42→22:11)
[2021-04-20] MEDS: GABAPENTIN 250 MG/5 ML ORAL SOLUTION, 470 ML BOTTLE GT SCH ×2 (06:09→17:19)
[2021-04-20] MEDS: BANATROL PLUS POWDER PACKET GT SCH ×3 (06:09→22:21)
[2021-04-20] MEDS: INSULIN SLIDING SCALE (NOVOLOG) 1 VIAL SQ SCH ×4 (06:09→22:22)
[2021-04-20] MEDS: AMINO ACIDS/PROTEIN HYDROLYS 30 ML LIQUID.PKT GT SCH (07:30)
[2021-04-20] MEDS: ALBUTEROL SO4 2.5/IPRATROPIUM 0.5 INH SOL 3 ML VIAL.NEB. NEB SCH ×2 (07:53→11:02)
[2021-04-20 09:54] LABS: BASO % 0.2 % (0-2.0); EOS % 2.3 % (0-4.5); HEMATOCRIT 29.8 % (32.4-45.2); HEMOGLOBIN 9.9 GM/dL (10.7-15.3); LYMPH % 32.5 % (8-40); MCH 31.3 pg (25.7-33.7); MCHC 33.1 g/dl (32.0-36.0); MEAN CELL VOLUME 94.6 fl (80-96); MEAN PLT VOLUME 7.7 fl (7.5-11.1); MONO % 7.3 % (3.8-10.2); NEUT % 57.7 % (42.8-82.8); PLATELET COUNT 411 10^3/uL (134-434); RBC 3.15 M/mm3 (3.60-5.2); WHITE BLOOD COUNT 6.7 K/mm3 (4.0-10.0)
[2021-04-20 10:09] LABS: CALCIUM 9.5 mg/dL (8.5-10.1)
[2021-04-20 10:10] LABS: BLOOD UREA NITROGEN 45.7 mg/dL (7-18)
[2021-04-20] MEDS: ASPIRIN 81 MG CHEWABLE TABLETS GT SCH (10:10)
[2021-04-20] MEDS: METOPROLOL TARTRATE 50 MG TABLET (FP) GT SCH ×2 (10:10→22:21)
[2021-04-20] MEDS: HEPARIN NA (PORCINE) 5,000 UNITS/ML 1ML VIAL SQ SCH ×2 (10:10→22:21)
[2021-04-20] MEDS: FUROSEMIDE 40 MG/5 ML UNIT-DOSE CUP GT SCH (10:11)
[2021-04-20] MEDS: COLLAGENASE CLOSTRIDIUM HIST. 30 GRAMS TUBE TP SCH ×2 (10:12→22:22)
[2021-04-20] MEDS: FAMOTIDINE 40 MG/5 ML ORAL SUSPENSION PEG SCH (10:12)
[2021-04-20] MEDS: MULTIVIT-MINERALS ORAL LIQUID PO SCH (10:12)
[2021-04-20 10:13] LABS: CREATININE 0.9 mg/dL (0.55-1.3)
[2021-04-20] MEDS: POLYETHYLENE GLYCOL (HEALTHYLAX) 3350 17 GM PACKET GT SCH ×2 (11:03→22:21)
[2021-04-20] MEDS: ATORVASTATIN CA 10 MG TABLET (FP) GT SCH (22:21)
[2021-04-21] MEDS: GABAPENTIN 250 MG/5 ML ORAL SOLUTION, 470 ML BOTTLE GT SCH ×2 (05:35→18:39)
[2021-04-21] MEDS: BANATROL PLUS POWDER PACKET GT SCH ×3 (05:36→21:55)
[2021-04-21] MEDS: INSULIN SLIDING SCALE (NOVOLOG) 1 VIAL SQ SCH ×4 (06:49→22:48)
[2021-04-21] MEDS: AMINO ACIDS/PROTEIN HYDROLYS 30 ML LIQUID.PKT GT SCH (11:03)
[2021-04-21] MEDS: METOPROLOL TARTRATE 50 MG TABLET (FP) GT SCH ×2 (11:03→21:55)
[2021-04-21] MEDS: ASPIRIN 81 MG CHEWABLE TABLETS GT SCH (11:03)
[2021-04-21] MEDS: HEPARIN NA (PORCINE) 5,000 UNITS/ML 1ML VIAL SQ SCH ×2 (11:04→21:55)
[2021-04-21] MEDS: FAMOTIDINE 40 MG/5 ML ORAL SUSPENSION PEG SCH (11:04)
[2021-04-21] MEDS: FUROSEMIDE 40 MG/5 ML UNIT-DOSE CUP GT SCH (11:05)
[2021-04-21] MEDS: MULTIVIT-MINERALS ORAL LIQUID PO SCH (11:05)
[2021-04-21] MEDS: POLYETHYLENE GLYCOL (HEALTHYLAX) 3350 17 GM PACKET GT SCH ×2 (11:05→21:56)
[2021-04-21] MEDS: COLLAGENASE CLOSTRIDIUM HIST. 30 GRAMS TUBE TP SCH (11:06)
[2021-04-21] MEDS ORDERED: PT OWN MED DRAWER 7, Y5N ONE (13:30)
[2021-04-21] MEDS: ATORVASTATIN CA 10 MG TABLET (FP) GT SCH (21:56)
[2021-04-22] MEDS: BANATROL PLUS POWDER PACKET GT SCH ×3 (05:06→21:48)
[2021-04-22] MEDS: GABAPENTIN 250 MG/5 ML ORAL SOLUTION, 470 ML BOTTLE GT SCH ×2 (05:18→17:54)
[2021-04-22] MEDS: COLLAGENASE CLOSTRIDIUM HIST. 30 GRAMS TUBE TP SCH ×3 (05:19→21:56)
[2021-04-22] MEDS: INSULIN SLIDING SCALE (NOVOLOG) 1 VIAL SQ SCH ×4 (06:04→21:49)
[2021-04-22] MEDS ORDERED: PT OWN MED DRAWER 7, Y5N ONE ×4 (06:18→20:15)
[2021-04-22] MEDS: FAMOTIDINE 40 MG/5 ML ORAL SUSPENSION PEG SCH (11:21)
[2021-04-22] MEDS: FUROSEMIDE 40 MG/5 ML UNIT-DOSE CUP GT SCH (11:21)
[2021-04-22] MEDS: AMINO ACIDS/PROTEIN HYDROLYS 30 ML LIQUID.PKT GT SCH (11:22)
[2021-04-22] MEDS: MULTIVIT-MINERALS ORAL LIQUID PO SCH (11:22)
[2021-04-22] MEDS: ASPIRIN 81 MG CHEWABLE TABLETS GT SCH (11:23)
[2021-04-22] MEDS: METOPROLOL TARTRATE 50 MG TABLET (FP) GT SCH ×2 (11:23→21:49)
[2021-04-22] MEDS: POLYETHYLENE GLYCOL (HEALTHYLAX) 3350 17 GM PACKET GT SCH ×2 (11:23→21:48)
[2021-04-22] MEDS: HEPARIN NA (PORCINE) 5,000 UNITS/ML 1ML VIAL SQ SCH ×2 (11:23→21:48)
[2021-04-22 12:32] LABS: BASO % 0.2 % (0-2.0); EOS % 1.7 % (0-4.5); HEMOGLOBIN 9.9 GM/dL (10.7-15.3); LYMPH % 29.1 % (8-40); MCH 31.3 pg (25.7-33.7); MCHC 32.9 g/dl (32.0-36.0); MEAN CELL VOLUME 95.3 fl (80-96); MEAN PLT VOLUME 7.5 fl (7.5-11.1); MONO % 8.9 % (3.8-10.2); NEUT % 60.1 % (42.8-82.8); PLATELET COUNT 435 10^3/uL (134-434); RBC 3.15 M/mm3 (3.60-5.2); RDW 18.8 % (11.6-15.6); WHITE BLOOD COUNT 9.6 K/mm3 (4.0-10.0)
[2021-04-22 12:54] LABS: ALBUMIN 2.5 g/dl (3.4-5.0); CALCIUM 9.2 mg/dL (8.5-10.1)
[2021-04-22 12:55] LABS: BLOOD UREA NITROGEN 45.6 mg/dL (7-18)
[2021-04-22 12:59] LABS: BILIRUBIN,TOTAL 0.4 mg/dL (0.2-1); TOT PROT 7.2 g/dl (6.4-8.2)
[2021-04-22] MEDS: ATORVASTATIN CA 10 MG TABLET (FP) GT SCH (21:49)
[2021-04-23] MEDS: BANATROL PLUS POWDER PACKET GT SCH ×3 (05:49→21:11)
[2021-04-23] MEDS: GABAPENTIN 250 MG/5 ML ORAL SOLUTION, 470 ML BOTTLE GT SCH ×2 (05:49→17:31)
[2021-04-23] MEDS: INSULIN SLIDING SCALE (NOVOLOG) 1 VIAL SQ SCH ×4 (06:08→21:13)
[2021-04-23 09:22] LABS: BASO % 0.5 % (0-2.0); EOS % 1.8 % (0-4.5); HEMATOCRIT 26.1 % (32.4-45.2); HEMOGLOBIN 8.7 GM/dL (10.7-15.3); LYMPH % 24.9 % (8-40); MCH 31.4 pg (25.7-33.7); MCHC 33.2 g/dl (32.0-36.0); MEAN CELL VOLUME 94.7 fl (80-96); MEAN PLT VOLUME 7.3 fl (7.5-11.1); MONO % 8.4 % (3.8-10.2); NEUT % 64.4 % (42.8-82.8); PLATELET COUNT 369 10^3/uL (134-434); RBC 2.76 M/mm3 (3.60-5.2); RDW 19.3 % (11.6-15.6); WHITE BLOOD COUNT 8.3 K/mm3 (4.0-10.0)
[2021-04-23 10:07] LABS: ALBUMIN 2.2 g/dl (3.4-5.0); BLOOD UREA NITROGEN 48.8 mg/dL (7-18)
[2021-04-23 10:11] LABS: BILIRUBIN,TOTAL 0.5 mg/dL (0.2-1); TOT PROT 6.4 g/dl (6.4-8.2)
[2021-04-23] MEDS ORDERED: PT OWN MED DRAWER 7, Y5N ONE ×2 (10:40→14:00)
[2021-04-23] MEDS: POLYETHYLENE GLYCOL (HEALTHYLAX) 3350 17 GM PACKET GT SCH ×2 (10:48→21:11)
[2021-04-23] MEDS: MULTIVIT-MINERALS ORAL LIQUID PO SCH (10:50)
[2021-04-23] MEDS: FAMOTIDINE 40 MG/5 ML ORAL SUSPENSION PEG SCH (10:50)
[2021-04-23] MEDS: FUROSEMIDE 40 MG/5 ML UNIT-DOSE CUP GT SCH (10:50)
[2021-04-23] MEDS: METOPROLOL TARTRATE 50 MG TABLET (FP) GT SCH ×2 (10:50→21:10)
[2021-04-23] MEDS: AMINO ACIDS/PROTEIN HYDROLYS 30 ML LIQUID.PKT GT SCH (10:51)
[2021-04-23] MEDS: ASPIRIN 81 MG CHEWABLE TABLETS GT SCH (10:51)
[2021-04-23] MEDS: COLLAGENASE CLOSTRIDIUM HIST. 30 GRAMS TUBE TP SCH ×2 (10:52→21:13)
[2021-04-23] MEDS: HEPARIN NA (PORCINE) 5,000 UNITS/ML 1ML VIAL SQ SCH ×2 (10:52→21:12)
[2021-04-23] MEDS: ATORVASTATIN CA 10 MG TABLET (FP) GT SCH (21:10)
[2021-04-24] MEDS: BANATROL PLUS POWDER PACKET GT SCH (05:52)
[2021-04-24] MEDS: GABAPENTIN 250 MG/5 ML ORAL SOLUTION, 470 ML BOTTLE GT SCH (05:52)
[2021-04-24] MEDS: INSULIN SLIDING SCALE (NOVOLOG) 1 VIAL SQ SCH ×2 (07:06→12:24)
[2021-04-24 09:03] LABS: HEMATOCRIT 28.6 % (32.4-45.2); HEMOGLOBIN 9.5 GM/dL (10.7-15.3); MCH 31.8 pg (25.7-33.7); MCHC 33.2 g/dl (32.0-36.0); MEAN CELL VOLUME 95.9 fl (80-96); MEAN PLT VOLUME 7.5 fl (7.5-11.1); PLATELET COUNT 361 10^3/uL (134-434); RBC 2.98 M/mm3 (3.60-5.2); RDW 19.3 % (11.6-15.6); WHITE BLOOD COUNT 9.1 K/mm3 (4.0-10.0)
[2021-04-24 10:09] VITALS: BP 132/65; PULSE 84; TEMP 99.3
[2021-04-24] MEDS ORDERED: PT OWN MED DRAWER 7, Y5N ONE (10:23)
[2021-04-24] MEDS: ASPIRIN 81 MG CHEWABLE TABLETS GT SCH (10:31)
[2021-04-24] MEDS: METOPROLOL TARTRATE 50 MG TABLET (FP) GT SCH (10:31)
[2021-04-24] MEDS: FUROSEMIDE 40 MG/5 ML UNIT-DOSE CUP GT SCH (10:31)
[2021-04-24] MEDS: AMINO ACIDS/PROTEIN HYDROLYS 30 ML LIQUID.PKT GT SCH (10:32)
[2021-04-24] MEDS: POLYETHYLENE GLYCOL (HEALTHYLAX) 3350 17 GM PACKET GT SCH (10:32)
[2021-04-24] MEDS: MULTIVIT-MINERALS ORAL LIQUID PO SCH (10:32)
[2021-04-24] MEDS: HEPARIN NA (PORCINE) 5,000 UNITS/ML 1ML VIAL SQ SCH (10:42)
[2021-04-24] MEDS: FAMOTIDINE 40 MG/5 ML ORAL SUSPENSION PEG SCH (10:55)
[2021-04-24] MEDS: COLLAGENASE CLOSTRIDIUM HIST. 30 GRAMS TUBE TP SCH (11:30)
== END 2021-04-24 13:31 | DRG 207 ==
LOC: JER 15:58 → JERBED 18:47 → J5S 04-01 00:13
PROVIDERS: ADMIT Internal Medicine; ATTEND Family Medicine
PROC: 5A1955Z Respiratory Ventilation, Greater than 96 Consecutive Hours (ICD-10-PCS; principal; 2021-03-31)
PROC: 3E0G76Z Introduction of Nutritional Substance into Upper GI, Via Natural or Artificial Opening (ICD-10-PCS; 2021-03-31)
DX: J95.851 Ventilator associated pneumonia (principal); L89.153 Pressure ulcer of sacral region, stage 3; R53.2 Functional quadriplegia; G93.1 Anoxic brain damage, not elsewhere classified; E87.0 Hyperosmolality and hypernatremia; I13.0 Hypertensive heart and chronic kidney disease with heart failure and stage 1 through stage 4 chronic kidney disease, or unspecified chronic kidney disease; J96.11 Chronic respiratory failure with hypoxia; E11.9 Type 2 diabetes mellitus without complications; E78.5 Hyperlipidemia, unspecified; J44.9 Chronic obstructive pulmonary disease, unspecified; K21.9 Gastro-esophageal reflux disease without esophagitis; D64.9 Anemia, unspecified; Z93.1 Gastrostomy status; K59.00 Constipation, unspecified; I50.9 Heart failure, unspecified; R74.8 Abnormal levels of other serum enzymes; N18.9 Chronic kidney disease, unspecified; Z93.0 Tracheostomy status; Y83.8 Other surgical procedures as the cause of abnormal reaction of the patient, or of later complication, without mention of misadventure at the time of the procedure
CPT/HCPCS: 36415; 71045-TC-FY; 80048; 80053; 82272; 82550; 82728; 82803; 82962; 82977; 83036; 83540; 83550; 83605; 83735; 84100; 84484; 85025; 85027; 85045; 85610; 85730; 86140; 87040; 87070; 87186; 87205; 93005; 93010; 94002; 94640; 97161-GP; 99285-25; C9803; J1644; U0003; U0005